=== PATIENT | female | born 1955 | race Caucasian/White ===

== ENCOUNTER 2024-03-10 13:29 | Outpatient (POV) | payer MEDICARE, SELFPAY ==
[2024-03-10 14:20] VITALS: BP 114/68; PULSE 75; RESP 18; O2SAT 96; BMI 19.8
--- NOTE | 2024-03-10 14:59 | A.OFFVIS_ITS ---
HPI Data of Consult Patient: new to practice Consult date: 03/10/24 Requesting Physician: Karla Martines APRN Primary Care Provider: Referral Provider, MD Consult Narrative Reason for consult: Chronic back pain History of present illness: Ms. Murphy is a 68 year old female who presents today as a new patient. She is a referral from Edie Ponce's office. Today she rates her pain a 4 out of 10 however states that the pain will go to a 10 out of 10 with increased activity. She states the pain is all across her back and does radiate in and around her right rib cage. She describes it as a aching, stabbing sensation that is constant and interferes with everyday activities of daily living such as cooking or cleaning. She states that she barely gets any sleep due to the worsening pain. Patient states that is gone on for years and progressively worsened. Patient states she has tried Tylenol and ibuprofen along with oral medications including pain medication, gabapentin 300 mg daily, heat and ice and topicals with minimal relief. Patient states that she has not had any surgery or injection history in the past. She states that she has tried therapy and continued to do at home stretching exercise for longer than 12 weeks with no additional changes. 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 She states that this has all resolved however she does have concerns that the chronic steroid use did affect her back. Patient states that she knows she has osteoporosis and has asked for medications from her primary care in the past however they never sent any medications in regarding this. Patient states she is interested in any help we may be able to provide that she has no quality of life and she does not do anything due to the worsening pain. She does states she has a history of falls that may have aggravated her overall back symptoms. Her Joey has been reviewed. CC: Karla Martines APRN [facility] Disclaimer: The information contained in this section may have been updated after the patient was seen, as this information can be updated by other users. Social History Smoking Status: Smoker, status unknown alcohol intake: never current occupational status: other Travel in the last 8 weeks: None Review of Systems Review of Systems Review of systems:: pertinent systems reviewed and negative unless documented below Review of systems (narrative): Review of Systems: General: No recent weight changes, no fever, no sleep disturbances Respiratory: No cough, no shortness of air, no recurring pulmonary infections Cardiovascular/peripheral vascular: No chest pain, no palpitations, no edema, no shortness of breath Gastrointestinal: No new onset incontinence, normal bowel movements reported Genitourinary: No new onset incontinence Musculoskeletal: Chronic back pain, rib pain Psychiatric: [Normal mood/affect] Neurological: [Denies weakness in extremities], [denies balance issues] Meds Home Medications and Allergies New Prescriptions to Start Prescriptions: Objective Narrative: Physical Exam: General: Alert and oriented x3, no acute distress, pleasant and cooperative Lungs: Respirations even and unlabored, symmetrical chest expansion Eyes: PERRL Musculoskeletal: Flexion and extension of lumbar [spine] somewhat guarded secondary to pain, [antalgic gait noted] point tenderness along upper lumbar spine with radiating symptoms to her right ribs Neurological: Speech clear, no gross sensory deficit Assessment and Plan *Assessment and plan (1) Chronic back pain: Status: Acute Category: Medical Code(s): M54.9 - Dorsalgia, unspecified; G89.29 - Other chronic pain (2) Compression fracture: Status: Acute Category: Medical (3) Osteoporosis: Status: Acute Category: Medical Code(s): M81.0 - Age-related osteoporosis without current pathological fracture Plan Patient is experiencing chronic pain throughout her mid back to her low back with limited range of motion of her lumbar spine. Patient did have point tenderness on her upper lumbar spine that does radiate around towards her right ribs. Patient did have a chronic compression fracture of L1 with 95% height loss on her last imaging in September 2022. I did discuss with the patient that I do believe she benefit from a lumbar epidural steroid injection at this location. Risk and benefits were discussed with the patient and she would like to proceed forward with this plan of care. Patient has tried and failed conservative therapy including continued at home stretching exercise for longer than 12 weeks. I did also discuss with the patient that we will reach out to her primary care to request that she be put on osteoporosis medication due to the condition of her back with chronic compression fractures of T7, T8 and L1. I will order the patient a compounded cream and also send her for psychological evaluation for possible intrathecal pain pump trial in the future. Patient was counseled if she is deemed an appropriate candidate we will proceed forward with a pain pump trial at a later date. Patient agrees with this plan of care. Patient will be scheduled for a [facility] L1 under fluoroscopy. \ Patient has been instructed to contact the clinic with any concerns before the next appointment. Dr. Collazo has reviewed this note and agrees with this plan of care. This note was dictated using voice recognition software and make contain errors or omissions. All injections are used with Lidocaine, Bupivacaine and Depo Medrol. Occasionally urine drug screen is needed to verify patient's compliance with our office pain contract. This is ordered based off specific treatments related to chronic pain with the potential to abuse certain medications.
== END 2024-03-10 23:59 | disposition home or self-care (01) ==
LOC: SC.PAIN 13:31
PROVIDERS: Visit Provider Nurse Practitioner Family
DX: M54.9 Dorsalgia, unspecified (principal); G89.29 Other chronic pain; M81.0 Age-related osteoporosis without current pathological fracture; Z73.89 Other problems related to life management difficulty
CPT/HCPCS: 99202; G0463

== ENCOUNTER 2024-03-24 08:56 | Day surgery (SDC) | payer MEDICARE, MEDICAID, SELFPAY ==
[2024-03-24 09:32] VITALS: BP 123/57; PULSE 71; RESP 18; TEMP 36.5; O2SAT 93; BMI 19.8
[2024-03-24 09:59] VITALS: BP 121/67; PULSE 78; RESP 18; TEMP 36.4; O2SAT 100
--- NOTE | 2024-03-24 10:03 | P.PCN_ITS ---
Procedure Date: 03/24/24 Time: 09:55 Anesthesiologist:: Jordan Cortez CRNA Complications:: None Pre-procedure Diagnosis:: Degenerative disc lumbar spine multilevels. Lumbar radiculopathy. Lumbar disc bulge L1/2 Post-procedure Diagnosis:: Same Indications for Procedure:: Patient is a pleasant 68-year-old female who comes to our clinic today for L1/2 lumbar epidural steroid injection. Patient describes low lumbar back pain as constant, dull, aching. Patient also reports bilateral hip radicular symptoms. She rates her pain 7/10. Procedure Details:: Procedure: Lumbar epidural steroid injection under fluoroscopy Informed consent was obtained and the risks and benefits of the procedure were explained to the patient. The patient was taken to the procedure room and noninvasive monitors placed, including noninvasive blood pressure cuff and pulse oximeter. The back was viewed using C-arm Fluoroscopy and prepped using Chloraprep as a cleansing solution and the L1/2 interspace was palpated. Skin and subcutaneous tissues were anesthetized using lidocaine 1.5% and a 25-gauge needle. After this, an 18-gauge Touhy epidural needle was placed into the L1/2 interspace and advanced using fluoroscopic guidance and loss of resistance to a ir until the epidural space was encountered. After confirmation of needle placement in the epidural space, with dye, a solution containing normal saline, 3 mL and Depo-Medrol 80 mg were incrementally injected into the lumbar epidural space. The patient tolerated the procedure well with no complications. The patient was observed in the Pain Clinic and then discharged home neurologically intact. Plan and Disposition:: Patient was discharged without incident.
[2024-03-24] MEDS: methylPREDNISolone ACETATE 80MG/ML VIAL 80 MG (11:43)
[2024-03-24 12:24] VITALS: BP 122/64; PULSE 73; RESP 18; O2SAT 93
[2024-03-24 12:25] VITALS: BP 122/64; PULSE 73; RESP 18; O2SAT 93
== END 2024-03-24 10:00 | disposition home or self-care (01) ==
LOC: SC.PAINP 09:00
PROVIDERS: PCP Nurse Practitioner Family; Visit Provider Nurse Anesthetist, Certified Registered
DX: M51.16 Intervertebral disc disorders with radiculopathy, lumbar region (principal)
CPT/HCPCS: 62323; J1010

== ENCOUNTER 2024-04-02 14:10 | Outpatient (POV) | payer MEDICARE, MEDICAID, SELFPAY ==
--- NOTE | 2024-04-02 14:45 | EXP.PAIN.SOA ---
[facility] Disclaimer: The information contained in this section may have been updated after the patient was seen, as this information can be updated by other users. Medical History Hydronephrosis Chronic kidney disease, stage 3 Arteriosclerotic vascular disease Essential hypertension Neuropathy Anxiety Retroperitoneal fibrosis Osteoporosis Social History (Updated 03/24/24 @ 09:33 by Makenzie Celis RN) Smoking Status: Former smoker alcohol intake: never substance use type: marijuana current occupational status: other Travel in the last 8 weeks: None Have you lived/traveled outside US in past 30 days?: No Contact w/someone who lives/traveled outside US past 30 days?: No Exposure to someone with infectious disease in past 14 days?: No Do you have a fever (greater than 100.4 F or 38 C)?: No Have you tested positive for COVID-19: No Exposed to someone with COVID-19 in past 14 days?: No Do you have a sore throat?: No Do you have a cough?: No Do you have any weakness?: No Do you have any diarrhea?: No Are you experiencing any unusual bleeding?: No Do you have any muscle aches/pain?: No Do you have any abdominal pain?: No Are you experiencing loss of taste or smell?: No PM Subjective & Objective Subjective Subjective:: Patient is a pleasant 68-year-old female who presents today for follow-up of lumbar epidural steroid injection at L1 on 03/24/2024. Today she rates her pain a 7 out of 10. She denies any new trauma or injury. She does state that she had 100% relief following this injection however she really only got about 2 days at that level and then it did slowly decrease down. She states that it may be helping still little bit but if the pain has started to become more constant like what it was prior. Patient does have chronic compression fractures of T7, T8 and L1. Patient does state that she did complete her psychological evaluation and does want a proceed forward with the pump trial. Patient states that she did just recently get this done and knows that it is not in the computer as of right nail. Patient states that the compounded cream they did call her however she forgot to call them back. Patient denies any other changes from her appointment last time. Her Joey has been reviewed and is appropriate. Review of Systems: General: No recent weight changes, no fever, no sleep disturbances Respiratory: No cough, no shortness of air, no recurring pulmonary infections Cardiovascular/peripheral vascular: No chest pain, no palpitations, no edema, no shortness of breath Gastrointestinal: No new onset incontinence, normal bowel movements reported Genitourinary: No new onset incontinence Musculoskeletal: Low back pain, mid back pain Psychiatric: [Normal mood/affect] Neurological: [Denies weakness in extremities], [denies balance issues] Pain at rest (0-10 scale): 7 Objective Objective:: Physical Exam: General: Alert and oriented x3, no acute distress, pleasant and cooperative Lungs: Respirations even and unlabored, symmetrical chest expansion Eyes: PERRL Musculoskeletal: Flexion and extension of lumbar [spine] somewhat guarded secondary to pain, [antalgic gait noted] Neurological: Speech clear, no gross sensory deficit Has patient had previous pain injection?: Yes Percent improvement in pain since last injection: 100% Conservative treatment options previously tried: Home exercise plan Length of treatment: Longer than 12 weeks Meds Home Medications and Allergies Home Medications ?Medication ?Instructions ?Recorded ?Confirmed ?Type amlodipine 10 mg tablet 10 mg PO DAILY 03/11/24 03/11/24 History carvedilol 25 mg tablet 25 mg PO BID 03/11/24 03/11/24 History dicyclomine 10 mg capsule 10 mg PO TID PRN Stomach Upset 03/11/24 03/11/24 History gabapentin 300 mg capsule 300 mg PO TID 03/11/24 03/11/24 History hydroxyzine HCl 25 mg tablet 25 mg PO BID PRN Itching 03/11/24 03/11/24 History paroxetine HCl 40 mg tablet 40 mg PO DAILY 03/11/24 03/11/24 History New Prescriptions to Start Prescriptions: Allergies Allergy/AdvReac Type Severity Reaction Status Date / Time hydrochlorothiazide AdvReac unkn Verified 03/24/24 09:36 Assessment and Plan *Assessment and plan (1) Osteoporosis: Status: Acute Category: Medical Code(s): M81.0 - Age-related osteoporosis without current pathological fracture (2) Compression fracture: Status: Acute Category: Medical (3) Chronic back pain: Status: Acute Category: Medical Code(s): M54.9 - Dorsalgia, unspecified; G89.29 - Other chronic pain Plan Patient has had significant improvement following her epidural however does state that it was more temporary. I did review over the risk and benefits of the pump trial and she still would like to proceed forward. I did discuss with the patient that I will plan on following up with her in 2 weeks via telehealth once her psychological evaluation has been posted into the computer system. Patient agrees with this plan of care. Patient did also make mention that she is planning on getting a new primary care doctor. I have discussed with the patient that I would really like to see her be put on a medication for her osteoporosis as she is not on anything currently. Patient states that she will talk to them when she makes this appointment. Patient has been instructed to contact the clinic with any concerns before the next appointment. Dr. Collazo has reviewed this note and agrees with this plan of care. This note was dictated using voice recognition software and make contain errors or omissions. All injections are used with Lidocaine, Bupivacaine and Depo Medrol. Occasionally urine drug screen is needed to verify patient's compliance with our office pain contract. This is ordered based off specific treatments related to chronic pain with the potential to abuse certain medications.
[2024-04-02 14:55] VITALS: BP 125/54; PULSE 67; RESP 18; O2SAT 98; BMI 21.4
== END 2024-04-02 23:59 | disposition home or self-care (01) ==
LOC: SC.PAIN 14:11
PROVIDERS: Visit Provider Nurse Practitioner Family
DX: M81.0 Age-related osteoporosis without current pathological fracture (principal); M54.9 Dorsalgia, unspecified; G89.29 Other chronic pain; Z87.891 Personal history of nicotine dependence
CPT/HCPCS: 99212; G0463

== ENCOUNTER 2024-04-29 14:32 | Outpatient (POV) | payer MEDICARE, MEDICAID, SELFPAY ==
--- NOTE | 2024-04-29 14:58 | A.OFFVIS_ITS ---
[facility] Disclaimer: The information contained in this section may have been updated after the patient was seen, as this information can be updated by other users. Medical History Hydronephrosis Chronic kidney disease, stage 3 Arteriosclerotic vascular disease Essential hypertension Neuropathy Anxiety Retroperitoneal fibrosis Osteoporosis Social History Smoking Status: Former smoker alcohol intake: never substance use type: marijuana current occupational status: other Travel in the last 8 weeks: None PM Subjective & Objective Subjective Subjective:: Patient was given a choice of telemedicine visit or office visit; patient chose telemedicine/telehealth visit. These telehealth appointments are made on a [id number] scenario generally related to patient being ill and contagious or environmental factors related to ongoing weather patterns that makes it unsafe for travel to our physical office location. Patient is an established patient with their informed consent to treat signed and on file. Patient has given verbal consent for this telehealth appointment however understands that they do have the right to withdraw consent at any time. Patient was counseled regarding risk versus benefits of telehealth appointments. Patient was counseled there may arise limitations to said appointments such as: -The telehealth encounter not yielding sufficient information to make appropriate clinical decision which may require additional in person visits -Technology problems that may delay a medical evaluation and treatment for today's encounter and in rare instances -Security protocols could fail, causing a breach of privacy of personal medical information. Should such an event occur, patient would be promptly notified of any security issues that may arise. Patient acknowledges understanding regarding any and all risk associated with this appointment and would like to proceed forward with the telehealth appointment. This visit is being conducted via telemedicine telehealth ([place]) in accordance with all applicable laws and regulations. Patient is located in [place] and the treating medical provider is located in [place], [place]. Patient is a pleasant 68-year-old female who presents today via telehealth appointment to review over her psychological evaluation for a intrathecal pain pump trial. She rates her pain today a 7 out of 10. This appointment is occurring at the patient's home and she did give verbal consent for this audio appointment. She denies any new trauma or injury. Patient states that she still has the chronic pain and a history of multiple compression fractures. Patient has tried and failed conservative therapy including oral medication, heat and ice, topicals, at home stretching exercise for longer than 12 weeks. Patient does states she still would like to proceed forward with the intrathecal pain pump trial. She denies any additional questions from her last visit in office. Her Joey has been reviewed and is appropriate. Pain at rest (0-10 scale): 7 Objective Objective:: General: Alert and oriented x3, pleasant and cooperative Lungs: Patient is able to say complete sentences without dyspnea Neurological: Speech clear Has patient had previous pain injection?: No Conservative treatment options previously tried: Home exercise plan Length of treatment: Longer than 12 weeks Meds Home Medications and Allergies Home Medications ?Medication ?Instructions ?Recorded ?Confirmed ?Type amlodipine 10 mg tablet 10 mg PO DAILY 03/11/24 04/02/24 History carvedilol 25 mg tablet 25 mg PO BID 03/11/24 04/02/24 History dicyclomine 10 mg capsule 10 mg PO TID PRN Stomach Upset 03/11/24 04/02/24 History gabapentin 300 mg capsule 300 mg PO TID 03/11/24 04/02/24 History hydroxyzine HCl 25 mg tablet 25 mg PO BID PRN Itching 03/11/24 04/02/24 History paroxetine HCl 40 mg tablet 40 mg PO DAILY 03/11/24 04/02/24 History New Prescriptions to Start Prescriptions: Allergies Allergy/AdvReac Type Severity Reaction Status Date / Time hydrochlorothiazide AdvReac unkn Verified 03/24/24 09:36 Assessment and Plan *Assessment and plan (1) Osteoporosis: Status: Acute Category: Medical Code(s): M81.0 - Age-related osteoporosis without current pathological fracture (2) Compression fracture: Status: Acute Category: Medical (3) Chronic back pain: Status: Acute Category: Medical Code(s): M54.9 - Dorsalgia, unspecified; G89.29 - Other chronic pain Plan I did review over again the risk and benefits of the intrathecal pain pump trial and she still would like to proceed forward with this plan of care. I did industrial relations counselor the patient that her psychological evaluation is still not in the computer and we will reach out to medical records to see if we can get a copy of this. Patient agrees with this plan of care. She was counseled that we will call her back with a tentative date and time for her pump trial for her in the future. Patient has tried and failed conservative therapy including oral medication, heat and ice, topicals, at home stretching exercise for longer than 12 weeks. Patient does have significant history of osteoporosis with chronic compression fractures of T7, T8 and L1. We will be planning on submitting for the intrathecal pain pump trial under fluoroscopy with a one-time dose of fentanyl 25 mcg intrathecally. This visit did occur from -. Patient has been instructed to contact the clinic with any concerns before the next appointment. Dr. Collazo has reviewed this note and agrees with this plan of care. This note was dictated using voice recognition software and make contain errors or omissions. All injections are used with Lidocaine, Bupivacaine and Depo Medrol. Occasionally urine drug screen is needed to verify patient's compliance with our office pain contract. This is ordered based off specific treatments related to chronic pain with the potential to abuse certain medications.
== END 2024-04-29 23:59 | disposition home or self-care (01) ==
LOC: SC.PAIN 14:32
PROVIDERS: Visit Provider Nurse Practitioner Family
DX: M81.0 Age-related osteoporosis without current pathological fracture (principal); M54.9 Dorsalgia, unspecified; G89.29 Other chronic pain; Z87.891 Personal history of nicotine dependence; M48.55XA Collapsed vertebra, not elsewhere classified, thoracolumbar region, initial encounter for fracture
CPT/HCPCS: 99212; G0463

== ENCOUNTER 2024-07-03 13:03 | Day surgery (SDC) | payer MEDICARE, MEDICAID, SELFPAY ==
[2024-07-03 13:16] VITALS: BP 138/71; PULSE 72; RESP 16; TEMP 36.8; O2SAT 97; BMI 22.4
[2024-07-03] MEDS: CEFAZOLIN SODIUM 1 GM in 0.9 % SODIUM CHLORIDE 50 ML IV (14:19)
[2024-07-03 14:20] VITALS: BP 154/73; PULSE 68; RESP 16; O2SAT 96
[2024-07-03] MEDS: LIDOCAINE 1% 30ML PF VIAL 30 ML (14:21)
[2024-07-03] MEDS: FENTANYL 100MCG/2ML VIAL 100 MCG (14:22)
[2024-07-03 14:27] VITALS: BP 154/73; PULSE 68; RESP 18; O2SAT 96
[2024-07-03 14:30] VITALS: BP 149/76; PULSE 75; RESP 16; O2SAT 95
--- NOTE | 2024-07-03 14:53 | EXP.PAIN.PRO ---
Procedure Date: 07/03/24 Time: 14:53 Anesthesiologist:: Latrell Collazo MD Complications:: None Pre-procedure Diagnosis:: Degenerative disc disease of lumbar spine with lumbar radiculopathy symptoms Post-procedure Diagnosis:: Same Indications for Procedure:: The patient is a pleasant 68-year-old white female who we are treating for degenerative disease of lumbar spine with lumbar radiculopathy symptoms. She has failed all previous conservative treatments including injections, oral medications, physical therapy and she is not a candidate for surgery. She has had a successful psychological evaluation. She presents for intrathecal pump trial today. Procedure Details:: Pain pump trial Informed consent was obtained and the risk and benefits of the procedure was explained to the patient. The patient was taken to the procedure room and placed prone on the procedure table. Patient was prepped and draped in sterile fashion. C-arm fluoroscopy was used to view the lumbar spine. The skin and subcutaneous tissues were anesthetized using lidocaine. I placed a 18-gauge spinal needle into the L4-5 interspace and advanced until clear CSF was obtained. After this intrathecal catheter was inserted and advanced very easily to the L1 vertebral body. The needle was withdrawn. We were able to freely withdraw clear CSF through the catheter. We then injected intrathecal opioid single shot bolus of 25 mcg followed by saline and followed by the previous CSF that was withdrawn. The needle and catheter were then removed and a Band-Aid was placed. Patient tolerated the procedure well with no complications. We reevaluated the patient after 30 minutes to 1 hour. This patient had 90 to 100% relief in pain symptoms. She was much more functional. She was standing alone and walking better. By all indications this did seem to be a successful intrathecal pump trial. Patient was discharged home neurologic intact with good relief of pain symptoms. Plan and Disposition:: Will follow-up with this patient in 1 week. Will assess efficacy of this trial. If successful we will plan on permanent placement with intrathecal morphine 1 mg/mL to start at 100 mcg/day. Catheter tip will be at the T8 vertebral body.
[2024-07-03 15:00] VITALS: BP 139/72; PULSE 75; RESP 16; O2SAT 95
== END 2024-07-03 15:00 | disposition home or self-care (01) ==
PROVIDERS: Visit Provider Anesthesiology
DX: M51.16 Intervertebral disc disorders with radiculopathy, lumbar region (principal)
CPT/HCPCS: 62323; J0690; J3010

== ENCOUNTER 2024-07-13 12:04 | Outpatient (POV) | payer MEDICARE, MEDICAID, SELFPAY ==
[2024-07-13 12:35] VITALS: BP 89/48; BP 91/59; PULSE 77; RESP 14; O2SAT 94; BMI 21.4
--- NOTE | 2024-07-13 12:36 | A.OFFVIS_ITS ---
[facility] Disclaimer: The information contained in this section may have been updated after the patient was seen, as this information can be updated by other users. Medical History Hydronephrosis Chronic kidney disease, stage 3 Arteriosclerotic vascular disease Essential hypertension Neuropathy Anxiety Retroperitoneal fibrosis Osteoporosis Social History Smoking Status: Former smoker alcohol intake: never substance use type: marijuana current occupational status: other Travel in the last 8 weeks?: None Have you lived/traveled outside US in past 30 days?: No Contact w/someone who lives/traveled outside US past 30 days?: No Exposure to someone with infectious disease in past 14 days?: No Do you have a fever (greater than 100.4 F or 38 C)?: No Have you tested positive for COVID-19?: No Exposed to someone with COVID-19 in past 14 days?: No Do you have a sore throat?: No Do you have a cough?: No Do you have any weakness?: No Do you have any diarrhea?: No Are you experiencing any unusual bleeding?: No Do you have any muscle aches/pain?: No Do you have any abdominal pain?: No Are you experiencing loss of taste or smell?: No PM Subjective & Objective Subjective Subjective:: StayPatient is a pleasant 68-year-old female who presents today for pain pump trial follow-up. Today she rates her pain a 4 out of 10. She denies any new trauma or injury. Patient does state that she had 90 to 100% relief following this procedure and it lasted 24 hours. Patient states that she was able to do more than she has been able to for years. Patient states that her walking was much better and she was able to walk for longer as well as sleep better. Patient she still continues to have the chronic pain anywhere from her neck, mid back and low back. Patient does have significant history including compression fracture. Her Joey has been reviewed and is appropriate. Review of Systems: General: No recent weight changes, no fever, no sleep disturbances Respiratory: No cough, no shortness of air, no recurring pulmonary infections Cardiovascular/peripheral vascular: No chest pain, no palpitations, no edema, no shortness of breath Gastrointestinal: No new onset incontinence, normal bowel movements reported Genitourinary: No new onset incontinence Musculoskeletal: Mid back pain, chronic low back pain Psychiatric: [Normal mood/affect] Neurological: [Denies weakness in extremities], [denies balance issues] Pain at rest (0-10 scale): 4 Objective Objective:: Physical Exam: General: Alert and oriented x3, no acute distress, pleasant and cooperative Lungs: Respirations even and unlabored, symmetrical chest expansion Eyes: PERRL Musculoskeletal: Flexion and extension of thoracic [spine] somewhat guarded secondary to pain, [antalgic gait noted] Neurological: Speech clear, no gross sensory deficit Has patient had previous pain injection?: No Conservative treatment options previously tried: Home exercise plan Length of treatment: Longer than 12 weeks Meds Home Medications and Allergies Home Medications ?Medication ?Instructions ?Recorded ?Confirmed ?Type amlodipine 10 mg tablet 10 mg PO DAILY 03/11/24 07/13/24 History carvedilol 25 mg tablet 25 mg PO BID 03/11/24 07/13/24 History dicyclomine 10 mg capsule 10 mg PO TID PRN Stomach Upset 03/11/24 07/13/24 History gabapentin 300 mg capsule 300 mg PO TID 03/11/24 07/13/24 History hydroxyzine HCl 25 mg tablet 25 mg PO BID PRN Itching 03/11/24 07/13/24 History paroxetine HCl 40 mg tablet 40 mg PO DAILY 03/11/24 07/13/24 History methocarbamol 500 mg tablet 500 mg PO TID #42 tabs 07/13/24 Rx New Prescriptions to Start Prescriptions: Karla Burt Allergies Allergy/AdvReac Type Severity Reaction Status Date / Time hydrochlorothiazide AdvReac unkn Verified 03/24/24 09:36 Assessment and Plan *Assessment and plan (1) Compression fracture: Status: Acute Category: Medical (2) Chronic back pain: Status: Acute Category: Medical Code(s): M54.9 - Dorsalgia, unspecified; G89.29 - Other chronic pain (3) Osteoporosis: Status: Acute Category: Medical Code(s): M81.0 - Age-related osteoporosis without current pathological fracture Plan Patient did undergo a intrathecal pump trial with significant improvement in the patient would like to proceed forward with the intrathecal implant. Patient did have 90 to 100% relief lasting 24 hours and gave overall improved function. Risk and benefits have been discussed and they still wish to continue with this plan of care. Patient has tried and failed conservative therapies. Patient does have a signed agreement that if we proceed forward with the intrathecal pump that there will be a decrease in oral pain medications if this is applicable with the overall goal 2-no oral opioids once the intrathecal pain pump is established. Prior to the intrathecal trial patient was on a fixed schedule with her medications and patient has been compliant with her medication regimen. We will submit for the intrathecal pain pump implant under fluoroscopy I will send in refills on her compounded cream since she has not yet tried this as well as send and methocarbamol 500 mg 3 times daily as needed to her pharmacy. Patient has been instructed to contact the clinic with any concerns before the next appointment. Dr. Collazo has reviewed this note and agrees with this plan of care. This note was dictated using voice recognition software and make contain errors or omissions. All injections are used with Lidocaine, Bupivacaine and dexamethasone. Occasionally urine drug screen is needed to verify patient's compliance with our office pain contract. This is ordered based off specific treatments related to chronic pain with the potential to abuse certain medications.
== END 2024-07-13 23:59 | disposition home or self-care (01) ==
PROVIDERS: PCP Nurse Practitioner; Visit Provider Nurse Practitioner Family
DX: M54.9 Dorsalgia, unspecified (principal); G89.29 Other chronic pain; M81.0 Age-related osteoporosis without current pathological fracture; Z87.891 Personal history of nicotine dependence
CPT/HCPCS: 99212; G0463

== ENCOUNTER 2024-09-30 11:30 | Outpatient (CLI) | payer MEDICARE, MEDICAID, SELFPAY ==
--- OUTSIDE RECORDS SUMMARY | 2024-09-30 11:33 | XMS_ITS | Patient Health Record ---
Author Organization [facility] [place] Address [address] [place] [address] [place] [address] Support Name Relationship Address Phone ROSENDA PEREIRA Guarantor Unknown [phone] Allergies Allergen (clinical drug ingredient) Drug/Non Drug Allergy documented on EMR Reaction Allergy Type Onset Date Status hydrochlorothiazide HCTZ (uncoded) Unknown Allergy Active Reason For Referral No Information Medications Medication SIG (Take, Route, Frequency, Duration) Notes Start Date End Date Status PARoxetine HCl 40 MG 1 tablet in the mor yi Orally Once a day; Duration: 30 day(s) Active Metoprolol Tartrate 50 MG 1 tablet with food Orally Twice a day; Duration: 30 day(s) Active Social History Tobacco Use: Social History Observation Description Date Details (start date - stop date) Never Smoker NA - NA Tobacco Use/Smoking Question Answer Notes Are you a nonsmoker Additional Findings: Tobacco Non-User Current no n-smoker Problems Problem Type SNOMED Code ICD Code Onset Dates Problem Status W/U Status Risk Notes Problem Essential hypertension (60026408) Essential (primary) hypertension (I10) Active confirmed Problem Hydronephrosis (98585081) Hydronephrosis with ureteral stricture, not elsewhere classified (N13.1) Active confirmed Problem Pyelonephritis (17982852) Nephritis interstitial chronic (N11.9) Active confirmed Problem Arthritis (3554072) Arthritis (M19.90) Active confirmed Problem Chronic kidney disease due to hypertension (434800410972586) Nephrosclerosis, stage 1 through stage 4 or unspecified chronic kidney disease (I12.9) Active confirmed Problem Renal failure syndrome (42664313) Renal failure, unspecified chronicity (N19) Active confirmed Plan Of Treatment No Information Insurance Providers Payer Name Payer Address Payer Phone Subscriber Number Group Number Insured Name Patient Relationship to Insured Coverage Start Date Coverage End Date [employer] D-RURAL [address] [place] [phone] [id number] ROSENDA PEREIRA Self - patient is the insured Medical (General) History Medical History History ICD Code Heart Palpitations Hypothyroidism Surgical History Surgery Date(Month/Year) Tubaligation Hospitalization History Reason Date(Month/Year) Kidneys Shut down x 5
--- OUTSIDE RECORDS SUMMARY | 2024-09-30 11:33 | XMS_ITS | Clinical Summary ---
Author Organization Healthcare Address [address] [place] [address] Care Team Providers Care Commercial Real Estate Manager Name Role Phone Kwadwo Scott MD Primary Care Provider Allergies Active Allergy Reactions Criticality Noted Date Comments Hydrochlorothiazide Anaphylaxis,Unknown - Patient states they do not know rxn details High 12/21/2019 Medications hydrOXYzine HCl (Atarax) 25 MG tablet TAKE ONE (1) TABLET TWICE A DAY BY ORAL ROUTE FOR 30 DAYS. 12/18/2022 Active PARoxetine (Paxil) 40 MG tablet Take 1 tablet (40 mg) by mouth. 12/18/2022 Active rosuvastatin (Crestor) 5 MG tablet TAKE ONE (1) TABLET EVERY DAY BY ORAL ROUTE FOR 30 DAYS. 01/08/2022 Active carvedilol (Coreg) 25 MG tablet TAKE ONE (1) TABLET BY MOUTH TWICE DAILY Active amLODIPine (Norvasc) 10 MG tablet TAKE ONE (1) TABLET BY MOUTH ONCE DAILY Active allopurinol (Zyloprim) 100 MG tablet TAKE 1 TABLET BY MOUTH ONCE DAILY FOR 90 DAYS Active Family History Medical History Relation Name Comments Hypertension Father Hypertension Mother Hypertension Other Relation Name Status Comments Father Mother Other Social History Tobacco Use Types Packs/Day Years Used Date Smoking Tobacco: Former Smokeless Tobacco: Never Tobacco Cessation:Counseling Given: Not Answered Alcohol Use Standard Drinks/Week Comments Not Currently 0 (1 standard drink = 0.6 oz pure alcohol) Alcoholic Drinks/day: Current non-drinker of alcohol Comments Unknown Sex and Gender Information Value Date Recorded Sex Assigned at Not on file Legal Sex Female 6:31 PM EDT Gender Identity Not on file Sexual Orientation Not on file Last Filed Vital Signs Vital Sign Reading Time Taken Comments Blood Pressure 123/64 01/02/2023 10:44 AM EST Pulse - - Temperature - - Respiratory Rate - - Oxygen Saturation - - Inhaled Oxygen Concentration - - Weight 51.1 kg (112 lb 9.6 oz) 01/02/2023 10:44 AM EST Height 154.9 cm (5' 1 ) 01/02/2023 10:44 AM EST Body Mass Index 21.28 01/02/2023 10:44 AM EST Plan of Treatment Health Maintenance Due Date Last Done Comments [facility]Y-Bone Density Scan 1956 [facility]Y-Depression Screening 1956 UKY-/Child/Adol SDOH Screenings 1956 UKY- SDOH Screenings 1974 UKY-Adult SDOH Screenings 1974 CT Colonography 2001 Colonoscopy 2001 FIT-DNA 2001 FIT 2001 FOBT 2001 Sigmoidoscopy 2001 UKY-Colorectal Cancer Screening 2001 UKY-Pneumococcal Vaccine: 50 + Years (1 of 1 - PCV) 2006 UKY-Zoster Vaccines (1 of 2) 2006 [id number]-[id number]-28 Vaccine ( season) 2023 02/23/2022, 05/30/2020, 05/02/2020 UKY-Influenza Vaccine (#1) 2024 11/29/2016 UKY-DTaP,Tdap,and Td Vaccine s (2 - Td or Tdap) 07/12/2025 07/13/2015 UKY-RSV Vaccine: 60+ Years o r (1 - 1-dose 75+ series) 10/13/2031 HPV Vaccines Aged Out No longer eligi ble based on patient's age to complete this topic UKY-HIB Vaccines Aged Out No longer e ligible based on patient's age to complete this topic UKY-Hepatitis A Vaccines Aged Out No longer eligible based on patient's age to complete this topic UKY-IPV Vaccines Aged Out No longer e ligible based on patient's age to complete this topic UKY-Rotavirus Vaccines Aged Out No lo nger eligible based on patient's age to complete this topic Insurance MEDICARE [place] Care Teams Commercial Real Estate Manager Relationship Specialty Start Date End Date Kwadwo Scott MD [address] [place] [address] PCP - General 07/08/20
--- NOTE | 2024-09-30 11:58 | ECG_ITS ---
APPROVED REPORT Exam: Resting ECG HR:56 bpm ECG Measurements Heart Rate 56 AXES ME 173 P 55 QRSd 82 QRS 53 QT 397 T 72 QTc 388 Conclusion SINUS BRADYCARDIA ANTEROSEPTAL MYOCARDIAL INFARCTION , OF INDETERMINATE AGE [40+ ms Q WAVE IN V1-V4] ABNORMAL ECG UNCONFIRMED REPORT Electronically signed by : Olu Ravi MD 10/01/2024 09:00:53
[2024-09-30 12:02] VITALS: BMI 20.1
[2024-09-30 12:10] LABS: Hematocrit 32.6 % (37.0-47.0); Hemoglobin 10.0 g/dL (12.2-16.2); Immature Granulocytes % 0.5 %; Mean Corpuscular HGB Conc 30.7 g/dL (31.8-35.4); Mean Corpuscular Hemoglobin 24.6 pg (27.0-31.2); Mean Corpuscular Volume 80.3 fl (81-99); Nucleated Red Blood Cells % 0 %; Platelet Count 411 K/mm3 (142-424); Red Blood Count 4.06 M/mm3 (4.20-5.40); Red Cell Distribution Width-SD 55.1 fL; White Blood Count 8.3 K/mm3 (4.8-10.8)
[2024-09-30 12:35] LABS: Chloride 108 mmol/L (98-107); Sodium 135 mmol/L (136-145)
[2024-09-30 12:36] LABS: Potassium 4.6 mmoL/L (3.5-5.1)
[2024-09-30 12:38] LABS: Anion Gap 9.6 mEq/L (5-15); Blood Urea Nitrogen 30 mg/dl (7-17); Carbon Dioxide 22 mmol/L (22.0-30.0); Creatinine Clearance Estimated 22 mL/min (50-200); Creatinine,Serum 1.80 mg/dl (0.52-1.04); Estimated Glomerular Filt Rate 28 ml/min (>60); GFR (African American) 34 ML/MIN (>60)
[2024-09-30 12:39] LABS: Calcium 9.1 mg/dl (8.4-10.2); Glucose 92 mg/dl (74-100)
== END 2024-09-30 23:59 | disposition home or self-care (01) ==
LOC: PREOP 11:31
PROVIDERS: Visit Provider Anesthesiology
DX: Z01.810 Encounter for preprocedural cardiovascular examination (principal); Z01.812 Encounter for preprocedural laboratory examination; I25.2 Old myocardial infarction; R00.1 Bradycardia, unspecified; R94.31 Abnormal electrocardiogram [ECG] [EKG]
CPT/HCPCS: 80048; 85025; 93005

== ENCOUNTER 2024-10-15 13:11 | Outpatient (CLI) | payer MEDICARE, MEDICAID, SELFPAY ==
--- NOTE | 2024-10-15 | CA_ITS ---
APPROVED REPORT Exam: Pharmacologic Technologist: Lisa Lopez Ht: 60 ft 0 in Wt: 103 lbs BSA: 8.53 m2 HR: 64 bpm BP: 154/57 mmHg Rhythm: SR Medical History Cardiac Risk Factors: HTN Stress Test Details HR Resting HR: 64 bpm Max Heart Rate (APMHR): 152.624242 bpm Target HR (85% APMHR): 129.063257 bpm Recovery HR: 85 bpm BP Resting BP: 154.0/57.0 mmHg Recovery BP: 167.0/87.0 mmHg ECG Resting ECG: SR Stress ECG Conclusion During lexiscan pt experinced dyspnea, nausea, and vomitting. No arrhythmias noted. Less than 1.5mm ST segment changes. Nondiagnostic ECG/lexiscan. Electronically signed by : Yelitza Lee MD 10/16/2024 21:25:50
--- NOTE | 2024-10-15 13:00 | NM_ITS ---
APPROVED REPORT Exam: Nuclear Stress Test Indication: htn, hyperlipidemia, sob, abn ekg Patient Location: Outpatient Stress Tech: Rosy Feliz [place] Tech:XU Felder RT (R)(N)(M) Ht: 5 ft 5 in Wt: 102 lbs Bra Size: c HR: 64 bpm BP: 154/57 mmHg BSA: 1.49 m2 TID: 1.05 BMI: 16.9 History: htn, hyperlipidemia, sob, abn ekg patient would not lay on stomach for prone images Procedure: Patient received 0.4 mg of intravenous Lexiscan, resting heart rate 64 bpm, resting blood pressure 154/57 mmHg, with Lexiscan maximum heart rate achieved was 90 bpm which is % of the maximum predicted heart rate and blood pressure was 141/75 mmHg. With Lexiscan, patient denied any complaint of chest pain. Cardiac Stress and Resting SPECT Images: Cardiac Stress and Resting SPECT images were obtained using technetium 99m Myoview 30.9 mCi stress and 10.73 mCi at rest. The patient could not lie on her abdomen. Therefore, prone stress imaging could not be performed. This may affect the diagnostic interpretation of the study findings. Resting and stress imaging in supine positions demonstrate no evidence of fixed or reversible perfusion defects. Gated imaging demonstrates normal global and regional LV systolic function. LVEF is calculated at 67%. Conclusion: No evidence of fixed or reversible perfusion defects. Gated imaging demonstrates normal global and regional LV systolic function. LVEF is calculated at 67%. Electronically signed by : Yelitza Lee MD 10/16/2024 21:18:22
[2024-10-15] MEDS: SODIUM CHLORIDE 0.9% 10ML SYR (RAD ONLY) 10 ML IV ×2 (13:10→15:00)
--- OUTSIDE RECORDS SUMMARY | 2024-10-15 13:35 | XMS_ITS | Clinical Summary ---
Author Organization Healthcare Address [address] [place] [address] Care Team Providers Care Airplane Captain Name Role Phone Kwadwo Scott MD Primary [...] 2006 UKY-Zoster Vaccines (1 of 2) 2006 [id number] Vaccine ( season) 2023 02/23/2022, 05/30/2020, 05/02/2020 [...] this topic Insurance [place] Care Teams Airplane Captain Relationship Specialty Start Date End Date Kwadwo Scott MD [address] [place] [address] PCP - General 07/08/20
--- OUTSIDE RECORDS SUMMARY | 2024-10-15 13:35 | XMS_ITS | Patient Health Record ---
Author Organization [facility] [place] Address [address] [place] [address] [place] [address] Support Name Relationship Address Phone ROSENDA PEREIRA Guarantor Unknown [phone] Allergies Allergen (clinical drug ingredient) Drug/Non Drug [...] W/U Status Risk Notes Problem Essential hypertension (23774181) Essential (primary) hypertension (I10) Active confirmed Problem Hydronephrosis (65225411) Hydronephrosis with ureteral stricture, not elsewhere classified (N13.1) Active confirmed Problem Pyelonephritis (29098010) Nephritis interstitial chronic (N11.9) Active confirmed Problem Arthritis (5078675) Arthritis (M19.90) Active confirmed Problem Chronic kidney disease due to hypertension (014568593746383) Nephrosclerosis, stage 1 through stage 4 or unspecified chronic kidney disease (I12.9) Active confirmed Problem Renal failure syndrome (70430756) Renal failure, unspecified chronicity (N19) Active confirmed Plan Of Treatment No Information Insurance Providers Payer Name Payer Address Payer Phone Subscriber Number Group Number Insured Name Patient Relationship to Insured Coverage Start Date Coverage End Date [employer] D-RURAL [address] [place] [phone] [id number] ROSENDA PEREIRA Self - patient is the insured Medical (General) History Medical History History ICD Code Heart Palpitations Hypothyroidism Surgical History Surgery Date(Month/Year) Tubaligation Hospitalization History Reason Date(Month/Year) Kidneys Shut down x 5
--- NOTE | 2024-10-15 14:30 | CA_ITS ---
APPROVED REPORT EXAM: Comprehensive 2D, Doppler, and color-flow Echocardiogram Business Operations Director: Amita Corbett CRT Ht: 5 ft 0 in Wt: 103lbs BSA: 1.41 BP: 111/67 mmHg Indications: Abnormal ECG, Chest Pain, Pre-Op surgery Saturday pain pump TDS pt moved thru out exam d/t back and hip pain, unable to lay for additional images. test ended 2D Dimensions LA Volume 29.40 mL LA Volume Index 20.85 mL/m2 (M/F) 16-34 M-Mode Dimensions RVDd 3.08 cm (0.9-2.6) LA Diam 3.32 cm (1.9-4.0) LVDd 4.29 cm (3.5-5.7) LVDs 2.15 cm (3.5-5.7) IVSd 1.04 cm (0.6-1.1) PWd 0.97 cm (0.6-1.1) EF (Teich) 81.50% FS 49.90% EDV (Teich) 82.60 mL ESV (Teich) 15.30 mL LV Diastology E Decel Time 217 (160-240 msec) E/A Ratio 0.8 MED A' 11.60 cm/s LAT A' 12.20 cm/s Aortic Valve KAYY Index 1.56 cm2/m2 AoV Peak Juan. 176.0 (50-130 cm/s) AI PHT 509.00 ms AO Peak GR. 12.40 mmHg AO Mean GR. 8.30 (<5 mmHg) AO VTI 42.8 (18-25 cm) KAYY (VTI) 2.24 (2.5-4.5 cm2) Mitral Valve MV E Max Juan. 76.0 (40-130 cm/s) MV A Velocity 91.0 (40-130 cm/s) E/A Ratio 0.83 MV PHT 63.0 ms Pulmonary Valve PV Peak Velocity 65.0 (50-150 cm/s) Tricuspid Valve TR P. Velocity 304.00 cm/s RAP Estimate 10.00 mmHg RVSP 46.90 mmHg Left Ventricle The left ventricle is normal size. Left ventricular systolic function is normal. The left ventricular ejection fraction is within the normal range. Proximal septal thickening is present. There is normal LV segmental wall motion. Transmitral Doppler flow pattern suggests impaired LV relaxation. LVEF is 55% Right Ventricle The right ventricle is normal size. The right ventricular systolic function is normal. Atria The left atrium is mildly dilated. The right atrium size is normal. There is no color Doppler evidence of interatrial shunt. Aortic Valve The aortic valve is mildly thickened. There is no hemodynamically significant aortic valvular stenosis. Mild aortic regurgitation is present. Mitral Valve The mitral valve is is mildly thickened. No evidence of mitral valve stenosis. Mild mitral regurgitation is present. Tricuspid Valve The tricuspid valve leaflets are thin and pliable. Mild tricuspid regurgitation. RVSP is 30-35 mmHg. Pulmonic Valve The pulmonary valve is grossly normal in structure. Trace pulmonic valve regurgitation is present. Great Vessels The aortic root is normal in size. IVC is normal in size and collapses >50% with inspiration. Pericardium There is no pericardial effusion. Other Information Study Quality: Fair Conclusion Normal biventricular systolic function. Mild LA dilation. Mild MR, mild TR. RVSP 30-35 mmHg. Electronically signed by : Yelitza Lee MD 10/16/2024 19:22:07
[2024-10-15] MEDS: ISOTOPE MYOVIEW (PER STUDY) 1 DOSE IV (15:19)
== END 2024-10-15 23:59 | disposition home or self-care (01) ==
PROVIDERS: PCP Nurse Practitioner Family; Visit Provider Nurse Practitioner Family
DX: I08.1 Rheumatic disorders of both mitral and tricuspid valves (principal); I11.9 Hypertensive heart disease without heart failure; R94.31 Abnormal electrocardiogram [ECG] [EKG]; E78.5 Hyperlipidemia, unspecified
CPT/HCPCS: 78452; 93016; 93017; 93018; 93306; A9502; J2785

== ENCOUNTER 2024-11-03 11:43 | Outpatient (CLI) | payer MEDICARE, MEDICAID, SELFPAY ==
--- OUTSIDE RECORDS SUMMARY | 2024-11-03 11:48 | XMS_ITS | Clinical Summary ---
Author Organization Healthcare Address [address] [place] [address] Care Team Providers Care Merchandise Director Name Role Phone Kwadwo Scott MD Primary [...] 2006 UKY-Zoster Vaccines (1 of 2) 2006 [id number] Vaccine ( season) 2024 02/23/2022, 05/30/2020, 05/02/2020 UKY-Influenza Vaccine (#1) 2024 [...] this topic Insurance [place] Care Teams Merchandise Director Relationship Specialty Start Date End Date Kwadwo Scott MD [address] [place] [address] PCP - General 07/08/20
--- OUTSIDE RECORDS SUMMARY | 2024-11-03 11:48 | XMS_ITS | Patient Health Record ---
Author Organization [facility] [place] Address [address] [place] [address] [place] [address] Support Name Relationship Address Phone ROSENDA PEREIRA Guarantor Unknown [phone] Allergies Allergen (clinical drug ingredient) Drug/Non Drug [...] W/U Status Risk Notes Problem Essential hypertension (31261505) Essential (primary) hypertension (I10) Active confirmed Problem Hydronephrosis (84872310) Hydronephrosis with ureteral stricture, not elsewhere classified (N13.1) Active confirmed Problem Pyelonephritis (98287581) Nephritis interstitial chronic (N11.9) Active confirmed Problem Arthritis (1980248) Arthritis (M19.90) Active confirmed Problem Chronic kidney disease due to hypertension (012160904536101) Nephrosclerosis, stage 1 through stage 4 or unspecified chronic kidney disease (I12.9) Active confirmed Problem Renal failure syndrome (69405215) Renal failure, unspecified chronicity (N19) Active confirmed Plan Of Treatment No Information Insurance Providers Payer Name Payer Address Payer Phone Subscriber Number Group Number Insured Name Patient Relationship to Insured Coverage Start Date Coverage End Date [employer] D-[employer] [address] [place] [phone] [id number] ROSENDA PEREIRA Self - patient is the insured Medical (General) History Medical History History ICD Code Heart Palpitations Hypothyroidism Surgical History Surgery Date(Month/Year) Tubaligation Hospitalization History Reason Date(Month/Year) Kidneys Shut down x 5
[2024-11-03 11:55] VITALS: BMI 20.1
[2024-11-03 12:44] LABS: Hematocrit 34.2 % (37.0-47.0); Hemoglobin 10.3 g/dL (12.2-16.2); Immature Granulocytes % 0.2 %; Mean Corpuscular HGB Conc 30.1 g/dL (31.8-35.4); Mean Corpuscular Hemoglobin 25.0 pg (27.0-31.2); Mean Corpuscular Volume 83.0 fl (81-99); Nucleated Red Blood Cells % 0 %; Platelet Count 333 K/mm3 (142-424); Red Blood Count 4.12 M/mm3 (4.20-5.40); Red Cell Distribution Width-SD 54.8 fL; White Blood Count 5.1 K/mm3 (4.8-10.8)
[2024-11-03 16:58] LABS: Anion Gap 13.1 mEq/L (5-15); Blood Urea Nitrogen 30 mg/dl (7-17); Calcium 9.1 mg/dl (8.4-10.2); Carbon Dioxide 21 mmol/L (22.0-30.0); Chloride 111 mmol/L (98-107); Creatinine Clearance Estimated 22 mL/min (50-200); Creatinine,Serum 1.80 mg/dl (0.52-1.04); Estimated Glomerular Filt Rate 28 ml/min (>60); GFR (African American) 34 ML/MIN (>60); Glucose 89 mg/dl (74-100); Potassium 5.1 mmoL/L (3.5-5.1); Sodium 140 mmol/L (136-145)
== END 2024-11-03 23:59 | disposition home or self-care (01) ==
LOC: PREOP 11:43
PROVIDERS: PCP Nurse Practitioner Family; Visit Provider Anesthesiology
DX: Z01.812 Encounter for preprocedural laboratory examination (principal)
CPT/HCPCS: 80048; 85025

== ENCOUNTER 2024-11-06 09:38 | Day surgery (SDC) | payer MEDICARE, MEDICAID, SELFPAY ==
[2024-11-03 13:43] VITALS: BMI 20.1
[2024-11-06 09:56] VITALS: BP 171/85; PULSE 67; RESP 18; TEMP 36.6; O2SAT 94
[2024-11-06] MEDS: LACTATED RINGERS 1000ML 1,000 ML 25 ML IV (10:12)
--- NOTE | 2024-11-06 10:42 | EXP.ANES.CKL ---
[facility] Disclaimer: The information contained in this section may have been updated after the patient was seen, as this information can be updated by other users. Medical History Pre-operative cardiovascular examination Dyspnea Chest pain Chest pressure Hypertension Abnormal EKG Gout COPD (chronic obstructive pulmonary disease) Hydronephrosis Chronic kidney disease, stage 3 Arteriosclerotic vascular disease Essential hypertension Neuropathy Anxiety Retroperitoneal fibrosis Osteoporosis Surgical History History of appendectomy History of tubal ligation Family History Other Family history of diabetes mellitus Social History Smoking Status: Former smoker alcohol intake: never substance use type: marijuana current occupational status: retired Travel in the last 8 weeks?: None Have you lived/traveled outside US in past 30 days?: No Contact w/someone who lives/traveled outside US past 30 days?: No Exposure to someone with infectious disease in past 14 days?: No Do you have a fever (greater than 100.4 F or 38 C)?: No Have you tested positive for COVID-19?: No Exposed to someone with COVID-19 in past 14 days?: No Do you have a sore throat?: No Do you have a cough?: No Do you have any weakness?: No Do you have any diarrhea?: No Are you experiencing any unusual bleeding?: No Do you have any muscle aches/pain?: No Do you have any abdominal pain?: No Are you experiencing loss of taste or smell?: No [facility] Anesthesia Checklist Patient Identification Patient Identification: Arm Band and Verbal (Name & ) Structural Data Admitted From: Home Planned Operative Procedure/s: Intrathecal pain pump placement Consent for Planned Operative Procedure(s) Verified: Yes Verified Documents: Surgical Consent NPO Status Verified Time NPO: 00:00 Chart Verification Results Verified: ECG Additional verifications Anesthesia Reactions: No Hx Blood Transfusions: No Blood Transfusion Reaction: No Airway Assessment Mallampati Score:: Class II C-Spine Mobility Assessed: Yes TMJ Mobility Assessed: Yes Dentition: Edentulous Neurological Assessment Level of Consciousness: Awake, Alert and Appropriate Hx Seizures: No Numbness or tingling in extremities: No Anesthesia Plan Anesthesia Risk discussed: Yes Anesthesia Plan: Verified ASA Class: II Anesthesia Type: MAC
[2024-11-06] MEDS: SODIUM CHLORIDE 0.9% 20ML VIAL 40 ML IV (11:22)
[2024-11-06] MEDS: LIDOCAINE 1% W/EPI 1:100,000 20ML VIAL 20 ML (11:22)
[2024-11-06] MEDS: GENTAMICIN 80 MG/2 ML VIAL (11:23)
[2024-11-06 12:00] VITALS: BP 183/91; PULSE 65; RESP 18; TEMP 36.3; O2SAT 95
[2024-11-06 12:10] VITALS: BP 152/82; PULSE 63; RESP 18; O2SAT 95
[2024-11-06 12:20] VITALS: BP 162/87; PULSE 64; RESP 18; O2SAT 95
--- NOTE | 2024-11-06 12:26 | EXP.OP.NOTE ---
Date of procedure: 11/06/24 Pre-op Diagnosis:: Degenerative disease of lumbar spine with lumbar radiculopathy symptoms Post-op Diagnosis:: Same Procedure performed:: Permanent placement intrathecal pain pump with tunneled intrathecal catheter and pain pump generator placement Surgeon:: Latrell Collazo MD AD [employer] OPERATOR:: Sixto Read Anesthesia: MAC Estimated blood loss (mL): 5 Clinical Note:: This patient is a pleasant 69-year-old white female who we are treating for degenerative disease of lumbar spine with lumbar radiculopathy symptoms and scoliosis. She has failed all previous conservative treatments including injections, oral medications, physical therapy and she is not a candidate for surgery. She has had a successful psychological evaluation and successful intrathecal pump trial. She presents for permanent placement of her intrathecal pain pump today. Operative findings:: None Operative note:: Informed consent was obtained and the risk and benefits of the procedure were explained to the patient. The patient was taken to the operating room placed prone on the procedure table. She was prepped and draped in sterile fashion. C-arm fluoroscopy was used to view the lumbar spine and the left flank. The skin and subcutaneous tissues jail between the 12th rib and iliac crest were anesthetized using lidocaine. I made an incision dissected out the generator pocket. C-arm fluoroscopy was then used to view the lumbar spine. The skin and subcutaneous tissues adjacent to the L4-5 and L5-S1 interspace were anesthetized using lidocaine. I made incision dissected down to the lumbar paraspinous fascia. A 17-gauge spinal needle was inserted and advanced into the L4-5 interspace until clear CSF was obtained. After this intrathecal catheter was inserted and advanced very easily to the T8 vertebral body. The catheter was in good position it was midline and posterior. The stylette of the catheter and the needle were withdrawn. The catheter was secured to the fascia with an anchor device and 2-0 Prolene. I filled the pump with 20 mL of intrathecal morphine 1 mg/mL. I tunneled the catheter from the back to the generator pocket and attached catheter to the pump. We were able to freely withdraw clear CSF through the sideport. The pump was then placed in the pocket with an antibiotic pouch. Both incisions were then closed with 2-0 Vicryl followed by 4-0 nylon and lety. The patient tolerated the procedure well with no complications. Pump was interrogated and started at 50 mcg/day of intrathecal morphine. Patient was discharged home neurologic intact good relief of pain symptoms. Plan and disposition: Will follow-up with this patient in 1 week for wound check and reprogramming. Will follow-up in 2 to 3 weeks for suture and staple removal. Condition: stable Disposition: PACU Complications:: None
[2024-11-06 12:30] VITALS: BP 164/79; PULSE 64; RESP 18; O2SAT 96
--- NOTE | 2024-11-06 12:36 | EXP.HP ---
History of Present Illness *Admission Date: 11/06/24 *Reason for visit:: Permanent placement intrathecal pain pump *History of present illness: This patient is a pleasant 69-year-old white female who we are treating for degenerative disease of lumbar spine with lumbar radiculopathy symptoms. She presents for permanent placement of her intrathecal pain pump today. [facility] Disclaimer: The information contained in this section may have been updated after the patient was seen, as this information can be updated by other users. Medical History (Updated 11/06/24 @ 12:39 by Latrell Collazo MD) Pre-operative cardiovascular examination Dyspnea Chest pain Chest pressure Hypertension Abnormal EKG Gout COPD (chronic obstructive pulmonary disease) Hydronephrosis Chronic kidney disease, stage 3 Arteriosclerotic vascular disease Essential hypertension Neuropathy Anxiety Retroperitoneal fibrosis Osteoporosis Surgical History History of appendectomy History of tubal ligation Family History Family history of diabetes mellitus Social History Smoking Status: Former smoker alcohol intake: never substance use type: marijuana current occupational status: retired Travel in the last 8 weeks?: None Have you lived/traveled outside [place] in past 30 days?: No Contact w/someone who lives/traveled outside [place] past 30 days?: No Exposure to someone with infectious disease in past 14 days?: No Do you have a fever (greater than 100.4 F or 38 C)?: No Have you tested positive for COVID-19?: No Exposed to someone with COVID-19 in past 14 days?: No Do you have a sore throat?: No Do you have a cough?: No Do you have any weakness?: No Do you have any diarrhea?: No Are you experiencing any unusual bleeding?: No Do you have any muscle aches/pain?: No Do you have any abdominal pain?: No Are you experiencing loss of taste or smell?: No Other Medical History Have you received the Flu Vaccine for this season: Yes Have you received the Pneumonia Vaccine: Yes Review of Systems Review of Systems Review of systems:: pertinent systems reviewed and negative unless documented below Meds Home Medications and Allergies Home Medications ?Medication ?Instructions ?Recorded ?Confirmed ?Type amlodipine 10 mg tablet 10 mg PO DAILY 03/11/24 11/06/24 History carvedilol 25 mg tablet 25 mg PO BID 03/11/24 11/06/24 History dicyclomine 10 mg capsule 10 mg PO TID PRN Stomach Upset 03/11/24 11/06/24 History gabapentin 300 mg capsule 300 mg PO TID 03/11/24 11/06/24 History hydroxyzine HCl 25 mg tablet 25 mg PO BID PRN Itching 03/11/24 11/06/24 History paroxetine HCl 40 mg tablet (Paxil) 40 mg PO DAILY 03/11/24 11/06/24 History methocarbamol 500 mg tablet 500 mg PO TID PRN Pain 10/06/24 11/06/24 History New Prescriptions to Start Prescriptions: Allergies Allergy/AdvReac Type Severity Reaction Status Date / Time hydrochlorothiazide AdvReac unkn Verified 10/06/24 09:20 Exam Data for Last 24 hours Vital signs and Labs for Last 24 Hours: Temp Pulse Resp BP Pulse Ox O2 Del Method 97.8 F 67 18 171/85 H 94 L Room Air 11/06/24 09:56 11/06/24 09:56 11/06/24 09:56 11/06/24 09:56 11/06/24 09:56 11/06/24 09:56 I & O for Last 24 hours: Intake & Output 11/04/24 11/05/24 11/06/24 11/07/24 11:59 11:59 11:59 11:59 Weight 103 lb *Routine HEENT Exam Head: Present normocephalic Eye: Present EOMI ENT: Present mucous membranes moist *Routine Neck Exam Neck: Present supple and full ROM *Routine Respiratory Exam Respiratory: Present normal respiratory effort *Routine Cardiovascular Exam Cardiovascular: Present RRR, Normal S1 and Normal S2 *Routine Abdominal Exam Abdominal: Present soft *Routine Rectal Exam Rectal:: deferred *Routine Genitalia Exam Genitalia:: deferred *Routine Extremities Exam Extremities: Present full ROM Routine Back/Spine/Pelvis Exam Back/Spine: Present full ROM Assessment and Plan *Assessment and plan (1) Compression fracture: Status: Acute Category: Medical (2) Degeneration of lumbar intervertebral disc: Status: Acute Qualifiers: Disc-related pain type: discogenic back pain and lower extremity pain Qualified Code(s): M51.362 - Other intervertebral disc degeneration, lumbar region with discogenic back pain and lower extremity pain Category: Medical Code(s): M51.369 - Other intervertebral disc degeneration, lumbar region without mention of lumbar back pain or lower extremity pain (3) Lumbar radiculopathy: Status: Acute Category: Medical Code(s): M54.16 - Radiculopathy, lumbar region Plan Patient presents for permanent placement intrathecal pain pump
== END 2024-11-06 12:40 | disposition home or self-care (01) ==
PROVIDERS: PCP Nurse Practitioner Family; Visit Provider Anesthesiology
PROC: (CPT 62350; principal; 2024-11-06 10:15)
DX: M51.16 Intervertebral disc disorders with radiculopathy, lumbar region (principal); J44.9 Chronic obstructive pulmonary disease, unspecified; I12.9 Hypertensive chronic kidney disease with stage 1 through stage 4 chronic kidney disease, or unspecified chronic kidney disease; N18.30 Chronic kidney disease, stage 3 unspecified; G62.9 Polyneuropathy, unspecified; F41.9 Anxiety disorder, unspecified; Z87.891 Personal history of nicotine dependence; Z79.899 Other long term (current) drug therapy; Z88.8 Allergy status to other drugs, medicaments and biological substances; R94.31 Abnormal electrocardiogram [ECG] [EKG]
CPT/HCPCS: 62350; 62362; 36415; 96374; 99221; C1755; C1772; J1580; J2003; J2004; J2704; J3010; J7120